=== PATIENT | male | born 1950 | race Caucasian/White ===

== ENCOUNTER 2019-04-02 11:00 | Inpatient (IN) | payer MEDICARE, BC ==
--- NOTE | 2019-03-27 22:26 | HP ---
AMENDED REPORT NOW INCLUDES DESIGNATED COSIGNER HISTORY AND PHYSICAL: DATE OF ADMISSION/SURGERY: 04/07/19 DATE OF OFFICE VISIT: 03/27/19 ATTENDING SURGEON: Dr. Leah Dennis.* (DICTATED BY GARY BULL) PROCEDURE: Left total knee arthroplasty. CHIEF COMPLAINT: Left knee pain. HISTORY OF PRESENT ILLNESS: Mr. Menjivar is a 68-year-old male who reports 18 months of increasing severe left knee pain. The patient reports 4-6/10 pain in the left knee along the medial joint line. He had some patellofemoral crepitus with stair climbing. He can no longer walk more than 1 block without severe pain. The patient does have significant history of psoriatic arthritis, fibromyalgia, and lymphedema. In the past, he has tried anti-inflammatories, but did have some stomach issues and can no longer take these. He has tried a brace wear, physical therapy, and injections, which did not help with pain. The patient feels like the pain is becoming more severe and impacting his daily life. At this point, he would like to proceed with the total knee arthroplasty. PAST MEDICAL HISTORY: Fibromyalgia, lymphedema, GERD, hypertension, hypercholesterolemia, seasonal allergies, psoriatic arthritis, degenerative joint disease, allergic rhinitis, chronic pain syndrome, asthma, sleep apnea, morbid obesity, mitral valve disorder. PAST SURGICAL HISTORY: Cholecystectomy in 1985, Kurt fundoplication in 2005, cataract excision bilaterally in 2012, left wrist I and D in 1975, and right knee partial meniscectomy in 2015. MEDICATIONS: 1. Amlodipine besylate 5 mg p.o. twice a day. 2. Valsartan 160 mg p.o. daily. 3. Eplerenone 25 mg 1 p.o. daily. 4. QVAR 80 mcg inhaled twice a day. 5. Spiriva inhaled once a day. 6. Singulair/montelukast sodium 10 mg once daily. 7. Pulmicort 90 mcg 2 times a day as needed. 8. Xopenex/levalbuterol tartrate 45 mcg inhaled twice a day as needed. 9. Olopatadine 1 drop each eye 3 times a day as needed. 10. Azelastine as needed. 11. EpiPen as needed. 12. Lovaza 1 g 3 times a day. 13. Calcipotriene cream 0.005% twice times a day on elbows as needed. 14. Medical marijuana 5 to 9 mg THC-1 to 10 mcg CBD one 2 times a day. 15. Lumigan 0.01% one drop each eye per day. 16. Azopt 1% one drop each eye 3 times a day. 17. Alfuzosin 10 mg once per day in the evening. 18. Zyrtec 10 mg p.o. once daily. 19. Vitamin D3 1000 units 3 times a day. 20. Potassium 99 mg 1 time per day. 21. Magnesium 250 mg p.o. b.i.d. 22. Vitamin B12 1 mg sublingual 1 times per day. 23. CBD oil 50 mg 1 time per day. ALLERGIES: LOPRESSOR, HYDROCHLOROTHIAZIDE, ERYTHROMYCIN, CLINDAMYCIN, CODEINE, NABUMETONE, IBUPROFEN, CELEBREX, PREVACID, PLAQUENIL, AMITRIPTYLINE, COREG, and HUMIRA. FAMILY HISTORY: Positive for coronary artery disease and alcoholism. SOCIAL HISTORY: The patient is a retired petroleum laboratory technician. He lives at home with his . He denies any tobacco, recreational drug, or alcohol use. He was a former smoker and alcoholic, but he quit many years ago. He is normally active with walking. He is right handed. REVIEW OF SYSTEMS: General: Negative for fevers, chills, night sweats, unexplained weight loss or gain. No known anesthesia problems. HEENT: Negative for headache, lightheadedness, syncopal episodes, visual changes. Integumentary: Negative for abrasions, lesions, open wounds. Cardiothoracic: Negative for hypertension, chest pain, edema. Positive for palpitations. Respiratory: Negative for shortness of breath with exertion, chronic cough, wheezing. GI: Negative for nausea, vomiting, diarrhea, constipation, or GERD. : Negative for nocturia, urinary frequency, urgency, history of UTIs, kidney problems. Positive for enlarged testes. Musculoskeletal: Positive for left knee pain. Negative for chronic or intermittent back pain or history of fractures. Neurologic: Positive for neuropathy and negative for paresthesia, numbness, history of seizure, stroke, poor balance. Negative for anxiety or depression. Endocrine: Negative for depression and thyroid disease. Hematologic: Negative for easy bruising, anemia, bleeding disorders, history of DVT. ID: Negative for history of MRSA infection, hep C, or HIV. PHYSICAL EXAMINATION GENERAL: Well-developed, well-nourished 68-year-old male, in no acute distress. VITAL SIGNS: Height 70 inches, weight 254 pounds. Pulse 108, BP 144/68, respirations 18, temperature 98.8, pain level 2, BMI 36.4. HEENT: Normocephalic, atraumatic. PERRLA. Extraocular movements intact. Throat is clear. NECK: Supple. No palpable lymph nodes. PULMONARY: Lungs are clear to auscultation bilaterally. No wheezes, rales, or rhonchi. CARDIO: Regular rate and rhythm. S1 and S2 normal. No murmurs, rubs, or gallops. No edema. ABDOMEN: Positive bowel sounds, soft and nontender. NEUROLOGIC: A and O x3. Cranial nerves II through XII intact. Sensation is intact to light touch. MUSCULOSKELETAL: Left lower extremity: The patient's skin is intact. No abrasions or open wounds. No palpable lymph nodes. Moderate effusion at the knee joint with tenderness along the medial joint line. Varus alignment of the knee. A 10 to 120 degrees of flexion with patellofemoral crepitus tenderness along the medial joint line with no varus or valgus instability distally. No edema, varicosities, or hyperreflexia. A 5/5 ankle dorsiflexion and plantarflexion strength. Full sensation to light touch in all nerve distributions and 2+ palpable DP pulse. DIAGNOSTIC STUDIES: Multiple plain films of the left knee showed advanced arthritis of the knee joint worse on the medial compartment. There is medial bone- to-bone contact with subchondral sclerosis and cyst formation at the point of contact along the distal medial femoral condyle and medial tibial plateau with osteophyte formation. There is also an MRI showing the advanced arthritis on the medial compartment as well as advanced arthritis on the patellofemoral compartment with cartilage thinning and osteophyte formation. IMPRESSION: Left knee severe osteoarthritis. PLAN: The patient is scheduled to undergo a left total knee arthroplasty with Dr. Dennis on 04/07/19. Dr. Dennis discussed the procedure as well as the risks and benefits with the patient and he elects to proceed. He will return to the office in 10 to 14 days postop for followup and suture removal. Upon discharge from the hospital, he will have a prescription for Percocet for postoperative pain management. STEPHANIA MENDENHALL, GARY [id number]/[facility] #: [id number] [facility] PSYCHIATRIC CENTERLibby
[2019-04-06] MEDS ORDERED: Buffered Lidocaine 1% SYRIN* 1 ML/SYRINGE INTRADERM ONE (14:07)
[2019-04-07] MEDS ORDERED: Tranexamic Acid 1,000 MG in NS 0.9% 50 ML* (outpatient use) IV SCH ×2
[2019-04-07] MEDS ORDERED: Dexamethasone IV* 4 MG/ML 1 ML (4 MG) IV SLOW PU ONE (06:00)
[2019-04-07] MEDS ORDERED: Lactated Ringers 1000 ML Bag* 1,000 ML IV SCH (06:00)
[2019-04-07] MEDS ORDERED: cefTRIAXone(*) 2 GM ADDV.VIAL IVPB ONE (06:42)
[2019-04-07] MEDS ORDERED: Buffered Lidocaine 1% SYRIN* 1 ML/SYRINGE INTRADERM ONE (06:42)
[2019-04-07] MEDS ORDERED: Dexamethasone IV* 4 MG/ML 1 ML (4 MG) ONE (06:42)
[2019-04-07] MEDS ORDERED: Gabapentin CAP(*) 300 MG ONE (07:22)
[2019-04-07] MEDS ORDERED: Lidocaine 1% MPF ** 5 ML VIAL ONE (07:22)
[2019-04-07] MEDS ORDERED: ROPIVACAINE 5 MG/ML 30 ML BTL (0.5%) ONE ×2 (07:22→07:55)
[2019-04-07] MEDS ORDERED: Gabapentin CAP(*) 300 MG PO ONE (07:24)
[2019-04-07] MEDS ORDERED: fentaNYL* 50 MCG/ML 2 ML VIAL (100 MCG VIAL) ONE (07:31)
[2019-04-07] MEDS ORDERED: Midazolam* 1 MG/ML 2 ML VIAL (2 MG) ONE (07:32)
[2019-04-07] MEDS ORDERED: Phenylephrine 10 MG/ML VIAL* 1 ML VIAL ONE (08:28)
[2019-04-07] MEDS ORDERED: Propofol* 10 MG/ML 20 ML BTL ONE ×2 (09:02→09:54)
[2019-04-07] MEDS ORDERED: HYDROmorphone INJ1* 1 MG/ML SYRINGE IV PRN (09:46)
[2019-04-07] MEDS ORDERED: Acetaminophen IV 1GM/100ML * 1,000 MG/100 ML VIAL IVPB ONE (09:46)
[2019-04-07] MEDS ORDERED: Ondansetron INJ* 2 MG/ML VIAL IV PRN ×2 (09:46→10:53)
[2019-04-07] MEDS ORDERED: Naloxone* 0.4 MG/ML 1 ML VIAL IV PRN (09:46)
[2019-04-07] MEDS ORDERED: Bupivacaine 0.5% SDV PF* 30ML VIAL ONE (09:54)
[2019-04-07] MEDS ORDERED: Magnesium Hydroxide LIQ* 30 ML UDC PO PRN (10:53)
[2019-04-07] MEDS ORDERED: Polyethylene Glycol 3350* 17 GM PACKET PO PRN (10:53)
[2019-04-07] MEDS ORDERED: traMADol TAB* 50 MG PO PRN (10:53)
[2019-04-07] MEDS ORDERED: diPHENhydraMINE PO* 25 MG PO PRN (10:53)
[2019-04-07] MEDS ORDERED: Bisacodyl SUPP* 10 MG SUPP PR PRN (10:53)
[2019-04-07] MEDS ORDERED: Cyclobenzaprine TAB* 10 MG PO PRN (10:53)
[2019-04-07] MEDS ORDERED: diPHENhydraMINE IV* 50 MG/ML 1 ml VIAL (BENADRYL) IV PRN (10:53)
[2019-04-07] MEDS ORDERED: Budesonide Flexhaler 90 (NF) 90 MCG/ACT MDI INH PRN (11:01)
[2019-04-07] MEDS ORDERED: Docosanol 10%* CREAM 2 GM TUBE TOPICAL PRN (11:01)
[2019-04-07] MEDS ORDERED: PTO: Levalbuterol HFA INHALER* 1 PUFF MDI INH PRN (11:01)
[2019-04-07] MEDS ORDERED: AZELASTINE 0.15% NASAL PRN (11:01)
[2019-04-07] MEDS ORDERED: Olopatadine 0.1% OPHTH (NF) 1 DROP BTL BOTH EYES PRN (11:01)
[2019-04-07] MEDS ORDERED: oxyCODONE/Acetamin 5/325 MG* TAB PO PRN (11:06)
[2019-04-07] MEDS: Lactated Ringers 1000 ML Bag* 1,000 ML IV SCH ×2 (12:14→22:07)
[2019-04-07] MEDS: oxyCODONE/Acetamin 5/325 MG* TAB PO PRN ×3 (13:07→21:16)
[2019-04-07] MEDS: Acetaminophen TAB* 325 MG PO SCH ×2 (15:04→21:57)
[2019-04-07] MEDS: oxyCODONE TAB* 5 MG TAB PO PRN ×3 (15:05→23:19)
--- NOTE | 2019-04-07 15:32 | PN ---
Progress Note - Progress Note Date of Service: 04/07/19 Note: Post-op check s/p left TKA: Patient walking with PT when I arrive. Pain is well managed. He denies SOB, or CP. Dressing is C/D/I with cryocuff in place. Positive dorsi/plantar flexion left ankle with intact sensation and 2+ DP pulse. Patient will continue with PT and we will monitor.
[2019-04-07] MEDS: ceFAZolin 1 GM ADVAN(*) 1 GM in NS 0.9% 50 ML* 50 ML IVPB SCH ×2 (15:48→23:30)
--- NOTE | 2019-04-07 16:33 | CONS ---
CC: Dr. Ami Pal; Dr. Leah Dennis * CONSULTATION REPORT: DATE OF CONSULTATION: 04/07/19 PRIMARY CARE PROVIDER: Dr. Ami Pal. ORTHOPEDIC SURGEON: Dr. Leah Dennis. ATTENDING PHYSICIAN: Dr. Domonique Gannon (dictated by GARY Ballesteros). REASON FOR CONSULTATION: Co-medical management. HISTORY OF PRESENT ILLNESS/HOSPITAL COURSE: I refer you to Dr. Dennis's history and physical dated 03/27/19 for full and complete details, but in short, Mr. Menjivar is a 69-year-old male with a past medical history of hypertension, lymphedema, venous insufficiency, chronic pain, fibromyalgia, morbid obesity, who presented to [facility] today for an elective left total knee arthroplasty after having failed conservative management. The patient is seen on the surgical floor in his room, postoperatively. He notes that he had pain in the left knee. Approximately 40 minutes ago, he was given oral pain medication, which resolved the pain. He denies pain at this point in time. He notes that he does have some residual tingling in bilateral lower extremities from nerve block , but no overt numbness. He is currently requiring O2 at 2 L. He does admit to some "phlegm" in the lungs, but no productive cough. He has lower extremity edema, which is chronic, and he notes that he has a slight amount more than usual due to inability to wear compression socks today and decreased ambulation. He denies chest pain, shortness of breath, headache, vision changes , cough, fever, chills, abdominal pain, nausea, vomiting, diarrhea or constipation. He denies weakness or pain, numbness or tingling in the extremities. PAST MEDICAL HISTORY: 1. Hypertension. 2. Obstructive sleep apnea. 3. Morbid obesity. 4. Asthma. 5. Lymphedema, chronic venous insufficiency. 6. Fibromyalgia. 7. Chronic pain. 8. Degenerative joint disease - C-spine, L-spine. 9. BPH. 10. GERD, status post Kurt fundoplication. 11. Mitral valve disorder. 12. Bilateral glaucoma. 13. Allergic rhinitis. 14. Seasonal allergies. 15. Psoriatic arthritis. PAST SURGICAL HISTORY: Cholecystectomy in 1985, right meniscus, Kurt fundoplication in 2005, right hand infection I and D in 1977, and tonsillectomy as a child. HOME MEDICATIONS: 1. Acetaminophen 1 to 2 tabs p.o. t.i.d. p.r.n. pain. 2. Acyclovir ointment apply p.r.n. 3. Alfuzosin 10 mg p.o. at bedtime. 4. Amlodipine besylate 5 mg p.o. b.i.d. 5. Azelastine 1 spray nasally daily p.r.n. allergies. 6. Azopt 1% ophthalmic solution 1 drop to both eyes b.i.d. 7. Beclomethasone 80 mcg MDI, 2 puffs inhalation b.i.d. 8. Lumigan ophthalmic 0.1 mg to both eyes at bedtime. 9. Budesonide Flexhaler 90, two puffs inhalation b.i.d. p.r.n. 10. Calcipotriene 1 application topically b.i.d. 11. CBD 15 mg liquid p.o. q.a.m. 12. Cetirizine 10 mg p.o. q.a.m. 13. EpiPen 0.3 mg injection once p.r.n. 14. Eplerenone 25 mg p.o. q.a.m. 15. Levalbuterol HFA inhaler 2 puffs inhalation q.4 hours p.r.n. shortness of breath. 16. Magnesium 250 mg p.o. b.i.d. 17. Medical marijuana 5 to 10 mg tab p.o. in the evening. 18. Montelukast 10 mg p.o. q.a.m. 19. Olopatadine 0.1% ophthalmic, 1 drop to both eyes b.i.d. p.r.n. allergy symptoms. 20. [place]-3 acid ethyl esters 1 g p.o. t.i.d. 21. Potassium gluconate 1 tab p.o. q.a.m. 22. Spiriva inhaler device, 2 puffs inhalation q.a.m. 23. Valsartan 160 mg p.o. q.a.m. 24. Vitamin B12 one tab sublingual q.a.m. 25. Vitamin D tab 1000 units p.o. t.i.d. DRUG ALLERGIES: BEE POLLEN - hives; HYDROCHLOROTHIAZIDE - leg cramp; HYDROXYCHLOROQUINE - GI upset; NABUMETONE - GI upset; NSAIDS - GI upset; PREGABALIN - lethargy; AMITRIPTYLINE - lethargy; CLINDAMYCIN - itching; METOPROLOL - dizziness; CODEINE - itching; ERYTHROMYCIN - nausea and vomiting; FAMOTIDINE - itching; LANSOPRAZOLE - itching; TRAMADOL - itching; CEPHALOSPORIN - itching; YEAST - bloating; MACROLIDES - itching. FAMILY HISTORY: Father at the age of 72 from [place], had history of CVA. Mother had hypertension, at the age of 97 from cancer. Son had testicular cancer. Brother had esophageal/lung cancer and . SOCIAL HISTORY: The patient no longer uses tobacco. He states that he smoked intermittently for approximately 8 years. He quit drinking approximately 45 years ago. He uses medical marijuana, which he is prescribed. He is a retired histologic technician. In his free time, he does wood carvings, gardening, [employer], and volunteers with [employer]. He is . He has 2 boys, who live outside of the house. In the event that he is unable to make his own medical decision, he has appointed his , Rosana Nicolas, to be his surrogate decision maker. REVIEW OF SYSTEMS: A 10-point review of systems has been performed and all the pertinent positives and negatives are in the HPI. All other systems are negative. PHYSICAL EXAM: Vital Signs: Temperature 97.4 oral, heart rate 85, respiratory rate 22, oxygen saturation 94% on 2 L O2, blood pressure 148/72. General: Mr. Menjivar is a well-developed, well-nourished, morbidly obese 69-year-old white male , who is sitting up in bed. He has his and a friend at his bedside. He is pleasant, cooperative, and friendly. HEENT: Normocephalic, atraumatic. PERRL. Nonicteric sclerae. EOMI. Hearing is grossly intact. Oral mucous membranes are moist, without lesions. Cardiovascular: Regular rate and rhythm with S1 and S2 present, without murmurs, rubs, clicks or gallops. There is no JVD. There is bilateral lower extremity 1+ pitting edema. Respiratory: Symmetrical chest expansion without use of accessory muscles. Lungs are clear to auscultation bilaterally, without rhonchi, wheezes or rubs. There is no clubbing or cyanosis distally. Abdomen: Obese. Bowel sounds noted in all quadrants. The abdomen is soft without tenderness to palpation. Musculoskeletal: The patient is able to move all of his extremities. The left knee has clean, dry, intact dressing in place; Cryo unit in place. Neuro: The patient is awake. He is alert and oriented x3 with cranial nerves grossly intact. He is able to move all of his extremities. He has intact sensation to bilateral lower extremities. Pulses are palpable. He is able to wiggle his toes. ASSESSMENT AND PLAN: Mr. Menjivar is a 69-year-old male with a past medical history of hypertension, lymphedema, venous insufficiency, chronic pain, asthma , morbid obesity, who presented to [facility] today for an elective left total knee arthroplasty. He has been admitted as inpatient for: 1. Left total knee arthroplasty: Management per orthopedic team. 2. Hypertension: Continue home medications, amlodipine, Inspra, and valsartan. Discussed holding valsartan, but the patient is disinterested in this. 3. Asthma: Continue home inhalers, beclomethasone, levalbuterol, Spiriva p.r.n. Continue Singulair. 4. Benign prostatic hypertrophy: Continue alfuzosin. 5. Seasonal allergies: Continue cetirizine. 6. Lymphedema, venous insufficiency: The patient continues to have lower extremity edema, which is chronic. He uses compression stockings at home. He will be continued on compression stockings as well as SCDs. 7. Obstructive sleep apnea: The patient has his home CPAP, which he will continue to use. 8. Code status: Full code. TIME SPENT: Approximately 30 minutes were spent on this consultation, greater than half that time was spent with the patient and his family and friends, obtaining history, performing physical, and reviewing the plan of care. The case has been reviewed with my attending, Dr. Gannon, who is in agreement with the plan of care. GARY ZAYAS [id number]/[facility] #: [id number] TANK
[2019-04-07] MEDS: Mometasone 220 MCG MDI INH SCH ×2 (18:42→18:47)
[2019-04-07] MEDS: MAGNESIUM 250 MG PO SCH (19:49)
--- NOTE | 2019-04-07 19:59 | OP ---
Operative Report - Blank - Operative Report Date of Operation: 04/07/19 Note: SHNAI GLOVER 1950 Date of Surgery: 04/07/19 Leah Dennis MD Butter Melter: Zac VEGA did help throughout the procedure with preparation of the knee, wound retraction, manipulation of the knee, and wound closure. Anesthesiologist: Dr. Chao Anesthesia Type: Spinal Preoperative Diagnosis: Left severe degenerative osteoarthritis of the knee Postoperative Diagnosis: As above Procedure Performed: Left Total Knee Arthroplasty Tourniquet time: 52 minutes Complications: None Specimen: Bone and cartilage from the left knee joint sent to pathology. Hardware Used: Cemented Dupree and Nephew total knee hardware was used - For the femur a size 7 Left legion posterior stabilized femoral component, for the tibia a size 6 left pari II tibial baseplate, for the insert a size 9mm 5-6 posterior stabilized articular polyethylene insert, and for the patella a size 35 3-peg all poly patella. Brief History/Indication: SHAIN GLOVER was known in clinic and had a history of severe left knee pain and swelling. He failed conservative treatment with anti- inflammatories, pain pills, intra-articular injections and physical therapy. He elected to undergo left total knee arthroplasty due to continued pain and decreased quality of life. Radiographs showed severe end stage osteoarthritis of the knee with bone on bone contact. Informed consent was obtained from the patient. He understood the risks of surgery included but were not limited to: bleeding, infection, damage to nearby structures, intraoperative fracture, nerve palsy, failure of the hardware, early loosening, knee stiffness or loss of motion, anesthesia complications, stroke, heart attack, blood clot and . He wished to proceed. Intra-Operative Findings: Intraoperatively the patient was noted to have severe loss of cartilage in all 3 compartments of the knee. Description of the Procedure: SHANI GLOVER was identified in the preanesthesia unit. His left knee was marked as the correct operative side. Informed consent was signed and placed in the chart. The patient was taken to the operating room and placed under anesthesia without complication. A winters catheter was placed. A tourniquet was placed on the left thigh. The left lower extremity was prepped and draped in the usual sterile fashion. Preoperative time-out was made to correctly identify the patient, side and site. Appropriate intraoperative antibiotics were given within one hour of incision. Tourniquet was inflated. A midline incision was made and carried sharply down to the extensor mechanism. A new 10 blade was used to make a standard medial parapatellar arthrotomy. The patella was subluxed laterally. Electrocautery was used to dissect soft tissue off the superomedial tibia to the midsagittal plane. The knee was flexed up. The anterior horn of the lateral meniscus and the ACL were sharply incised. A drill was used to enter the distal femur. The intramedullary distal femoral cutting guide was pinned on the distal femur. The oscillating saw was used to make the distal femoral cut. The external rotation guide was pinned on the distal femur and the distal femur was sized to a size 7. The size 7 multi-cutting jig was pinned on the distal femur. The oscillating saw was used to make the appropriate 4 chamfer cuts. Next the PCL was completely released. The extramedullary tibial cutting guide was pinned on the proximal tibia and the oscillating saw was used to make the proximal tibial cut perpendicular to the mechanical axis of the tibia. The bone was carefully removed. The knee was brought out into full extension. The spacer block was placed and had excellent fit with the knee in full extension. The medial and lateral ligaments were well balanced. The flexion and extension gaps were well balanced. The knee was flexed up. Lamina farmer general was placed both medially and laterally. Any remaining meniscus was removed with electrocautery. Curved osteotome was used to remove any posterior osteophytes. The tibial tray and drop karla were placed and confirmed a satisfactory tibial cut. The size 7 left femoral trial was impacted onto the distal femur. This trial had excellent fit and stability. The box for the posterior stabilized implant was prepared using a box cut osteotome and a reamer. Next a tibial tray trial and 9 mm insert trial was placed. The knee was taken through a range of motion and had full extension to 130 degrees of flexion. Patellofemoral tracking was satisfactory. The patella was inverted and sized to a size 35. Three peg holes were drilled through the size 35 drill guide. The trial patella was placed and the knee was taken through a range of motion. There was satisfactory patellofemoral tracking. All trials were removed. The tibia was subluxed anteriorly and sized to a size 6. The proximal tibial was prepared with a size 6 keel punch. All bony cut surfaces were irrigated with sterile saline and dried. Final implants were cemented into place starting with the tibia, followed by the femur, and last the patella. A 9 mm insert trial was placed and the knee was brought into full extension. Tourniquet was turned down and the knee was copiously irrigated with sterile saline. Electrocautery was used to obtain meticulous hemostasis. Once the cement had fully cured, the insert trial was removed. Any excess cement was removed from around the hardware and capsule. Final insert chosen was a 9 mm posterior stabilized Pari II articular insert size 5-6. Stability of the insert was checked and noted to be stable. The extensor mechanism was closed using number 1 vicryls. The rest of the incision was closed in a layered fashion using 0 and 2-0 vicryls. The skin was closed using 3-0 nylon suture. Sterile xeroform, 4x4s and webril were used to cover the incision. Tadeo wrap and cold pack were used to cover the dressings. The patients anesthesia was reversed without difficulty. He was taken to the PACU in stable condition. Intended weight-bearing will be as tolerated.
[2019-04-07] MEDS ORDERED: Alfuzosin ER (NF) 10 MG TAB.ER PO SCH (20:30)
[2019-04-07] MEDS ORDERED: amLODIPine TAB* 5 MG PO SCH (21:00)
[2019-04-07] MEDS ORDERED: Latanoprost 0.005%* 2.5 ml BTL BOTH EYES SCH (21:00)
[2019-04-07] MEDS: Apixaban* 2.5 MG TAB PO SCH (21:15)
[2019-04-07] MEDS: amLODIPine TAB* 5 MG PO SCH (21:15)
[2019-04-07] MEDS: Docusate CAP* 100 MG PO SCH (21:15)
[2019-04-07] MEDS: Magnesium Hydroxide LIQ* 30 ML UDC PO SCH (21:15)
[2019-04-07] MEDS ORDERED: PTO:Bimatoprost 0.01% OPHTH (NF) 2.5 ML BTL BOTH EYES SCH (22:00)
[2019-04-07] MEDS: ALFUZOSIN 10 MG PO SCH (22:08)
[2019-04-07] MEDS: PTO: Brinzolamide 1% OPHTH SOL(NF) BTL BOTH EYES SCH (22:09)
[2019-04-07] MEDS: CALCIPOTRIENE TOPICAL SCH (22:11)
[2019-04-07] MEDS: PTO: Beclomethasone 80 MCG MDI(NF) 80 MCG/PUFF MDI INH SCH (22:30)
[2019-04-07] MEDS: Morphine 4 MG/ML VIAL (1 ml) 4 MG/ML VIAL IV PRN (23:19)
[2019-04-08] MEDS: oxyCODONE/Acetamin 5/325 MG* TAB PO PRN ×4 (02:09→21:47)
[2019-04-08] MEDS: Morphine 4 MG/ML VIAL (1 ml) 4 MG/ML VIAL IV PRN ×2 (04:13→09:25)
[2019-04-08] MEDS: oxyCODONE TAB* 5 MG TAB PO PRN ×2 (04:13→11:07)
[2019-04-08 05:56] LABS: Hematocrit 37 % (42-52); Hemoglobin 12.8 g/dL (14.0-18.0); Mean Platelet Volume 7.7 fL (7.4-10.4); Platelet Count 189 10^3/uL (150-450)
[2019-04-08 06:06] LABS: BUN/Creatinine Ratio 16.7 (8-20); Calcium 8.9 mg/dL (8.6-10.3); EGFR African American 87.6 (>60); EGFR Non-African American 72.4 (>60); Potassium 4.1 mmol/L (3.5-5.0)
[2019-04-08] MEDS: Acetaminophen TAB* 325 MG PO SCH ×3 (06:27→22:47)
[2019-04-08] MEDS: Tiotropium CAP.INH* CAP.INH/18 MCG (USE ORDER SET !) INH SCH (08:03)
[2019-04-08] MEDS: PTO: Beclomethasone 80 MCG MDI(NF) 80 MCG/PUFF MDI INH SCH ×2 (08:09→19:20)
[2019-04-08] MEDS: Lactated Ringers 1000 ML Bag* 1,000 ML IV SCH (08:21)
[2019-04-08] MEDS: ceFAZolin 1 GM ADVAN(*) 1 GM in NS 0.9% 50 ML* 50 ML IVPB SCH (08:21)
[2019-04-08] MEDS: Apixaban* 2.5 MG TAB PO SCH ×2 (08:27→21:52)
[2019-04-08] MEDS: Montelukast Sodium TAB* 10 MG PO SCH (08:28)
[2019-04-08] MEDS: Cetirizine* 10 MG TAB PO SCH (08:28)
[2019-04-08] MEDS: Docusate CAP* 100 MG PO SCH ×2 (08:28→21:49)
[2019-04-08] MEDS: Cyanocobalamin TAB* 500 MCG PO SCH (08:28)
[2019-04-08] MEDS: PTO: Brinzolamide 1% OPHTH SOL(NF) BTL BOTH EYES SCH ×2 (08:29→21:53)
[2019-04-08] MEDS: Magnesium Hydroxide LIQ* 30 ML UDC PO SCH ×2 (08:29→21:49)
[2019-04-08] MEDS: Valsartan TAB* 160 MG PO SCH (08:29)
[2019-04-08] MEDS: amLODIPine TAB* 5 MG PO SCH ×2 (08:29→21:47)
[2019-04-08] MEDS: CALCIPOTRIENE TOPICAL SCH ×2 (08:30→22:18)
[2019-04-08] MEDS: EPLERONONE 25 MG PO SCH ×2 (08:31→11:39)
[2019-04-08] MEDS: MAGNESIUM 250 MG PO SCH ×3 (08:31→21:49)
[2019-04-08] MEDS: POTASSIUM 99 MG PO SCH (08:32)
[2019-04-08] MEDS ORDERED: Spiriva Inhaler DEVICE* 1 EACH DEVICE INH ONE (09:00)
--- NOTE | 2019-04-08 11:21 | PN ---
Subjective Date of Service: 04/08/19 Interval History: Patient has pain in L knee that he rates at 5-6/10; stats he is ready for pain medications now. He walked with PT this morning and states he did "okay," but it was painful. He admits to nausea with eating this morning, otherwise no abdominal complains. Urinary cath was removed this morning and he has yet to urinate. Pt is agitated and appears anxious about medication timing, both home medications and pain medications. He denies any other complaints at this time. Objective Active Medications: Acetaminophen (Tylenol Tab*) 975 mg PO Q8HR [facility] Alfuzosin HCl (Uroxatral (Nf)) 10 mg PO 2100 [place] Amlodipine Besylate (Norvasc Tab*) 5 mg PO BID [place] Apixaban (Eliquis*) 2.5 mg PO BID [place] Beclomethasone Dipropionate (Qvar 80 Mcg Mdi(Nf)) 2 puff INH BID [place] Bimatoprost (Lumigan 0.01% Ophth (Nf)) 1 drop BOTH EYES BEDTIME [facility]; Protocol Bisacodyl (Dulcolax Supp*) 10 mg [place] DAILY PRN Brinzolamide (Azopt 1% Ophth Angelic(Nf)) 1 drop BOTH EYES BID [place] Cetirizine HCl (Zyrtec*) 10 mg PO QAM [place] Cyanocobalamin (Vitamin B12 Tab*) 500 mcg PO QAM [place] Cyclobenzaprine HCl (Flexeril Tab*) 10 mg PO TID PRN Diphenhydramine HCl (Benadryl Iv*) 25 mg IV Q6H PRN Diphenhydramine HCl (Benadryl Po*) 25 mg PO Q6H PRN Docosanol (Abreva 10%*) 1 applic TOPICAL QID PRN Docusate Sodium (Colace Cap*) 100 mg PO BID [place] Eplerenone (Inspra (Nf)) 25 mg PO QAM [place]; Protocol Lactulose (Lactulose*) 30 ml PO Q6H PRN Levalbuterol HCl (Xopenex Hfa Inhaler*) 2 puff INH Q4HR PRN Magnesium Hydroxide (Milk Of Magnesia Liq*) 30 ml PO BID [place] Magnesium Hydroxide (Milk Of Magnesia Liq*) 30 ml PO Q6H PRN Montelukast Sodium (Singulair Tab*) 10 mg PO QAM [place] Morphine Sulfate (Morphine 4 Mg/Ml Vial (1 Ml)) 4 mg IV Q2H PRN Non-Formulary Medication (Azelastine 0.15% Nasal(Nf)) 1 spray NASAL DAILY PRN Pto: Calcipotriene [ Calcipotriene] 1 Applic) 1 applic TOPICAL BID [place] Pto: (Magnesium 250 (Mg)) 250 mg PO BID [facility] Pto: Potassium 99mg (Tab) 1 tab PO QAM [facility] Olopatadine HCl (Patanol 0.1% Ophth (Nf)) 1 drop BOTH EYES BID PRN; Protocol Ondansetron HCl (Zofran Inj*) 4 mg IV Q6H PRN Oxycodone HCl (Roxycodone Tab*) 10 mg PO Q4H PRN Oxycodone/Acetaminophen (Percocet 5/325 Tab*) 2 tab PO Q3H PRN Oxycodone/Acetaminophen (Percocet 5/325 Tab*) 1 tab PO Q3H PRN Polyethylene Glycol/Electrolytes (Miralax*) 17 gm PO DAILY PRN Tiotropium [place] (Spiriva Cap.Inh*) 1 cap INH 0900 [place] Valsartan (Diovan Tab*) 160 mg PO QAM PENDING SALE TO [facility] Vital Signs: Temp Pulse Resp BP Pulse Ox 98.1 F 94 18 144/82 95 04/08/19 07:52 04/08/19 08:00 04/08/19 11:10 04/08/19 07:52 04/08/19 10:00 Oxygen Devices in Use Now: Nasal Cannula Appearance: Pt is sitting in chair with LLE elevated. He appears slightly agitated and anxious during our converstation this morning. He admits to pain, appears mildly uncomfortable, and is in no acute distress. Eyes: No Scleral Icterus, PERRLA Ears/Nose/Mouth/Throat: NL Teeth, Lips, Gums, Clear Oropharnyx, Mucous Membranes Moist Neck: NL Appearance and Movements; NL JVP, Trachea Midline Respiratory: Symmetrical Chest Expansion and Respiratory Effort, Clear to Auscultation Cardiovascular: NL Sounds; No Murmurs; No JVD, RRR Abdominal: NL Sounds; No Tenderness; No Distention, No Hepatosplenomegaly Extremities: No Clubbing, Cyanosis Neurological: Alert and Oriented x 3, NL Sensation, - - L knee with CDI and cryounit in place. Sensation, pedal pulses intact. Trace b/l LE edema. Result Diagrams: 04/08/19 05:21 04/08/19 05:21 Assess/Plan/Problems-Billing Assessment: 69yom PMHx HTN, HLD, obesity, chronic lymphedema, venous insufficiency, asthma, chronic pain presents post-op LTKA. - Patient Problems (1) Status post total left knee replacement Comment: -POD1 -Continue management per ortho team (2) Hyponatremia Comment: -Na 131, h/o mild hyponatremia -Asymptomatic -Discontinue IVF and repeat BMP in a.m. (3) Lymphedema Comment: -Trace edema -Continue SCDs until ambulation, then TEDs for edema (4) Hypertension Comment: -SBP 124-146 -Continue home Inspra, valsartan, amlodipine (5) Asthma Comment: -Continue home inhalers Qvar, Spiriva, Xopenex -Continue singulair (6) BPH (benign prostatic hyperplasia) Comment: -Continue alfuzosin (7) Seasonal allergies Comment: -Continue cetirizine (8) TYLOR (obstructive sleep apnea) Comment: -Continue home CPAP (9) DVT prophylaxis Comment: -Per ortho: Therese (10) Full code status Status and Disposition: Inpatient. Discharge per ortho.
[2019-04-08] MEDS ORDERED: Morphine INJ* 2 MG/ML 1 ML SYRINGE (TWO MG - NEW SYRINGE VERSION) IV PRN (11:28)
--- NOTE | 2019-04-08 11:30 | PN ---
Progress Note - Progress Note Date of Service: 04/08/19 SOAP: Subjective: []Patient seen and examined at bedside. Knee pain is controlled with use of oxycodone, percocet and IV morphine. Denies chest pain, shortness of breath, dizziness or nausea. Objective: []Gen: Appears well, NAD, carries on appropriate conversation LLE: Dressing CDI, thigh soft, DF/PF intact, DP2+, Sensation intact to light touch distally Calves supple and nontender without erythema, edema or palpable cords Assessment: []POD 1 SP LTK Plan: []WBAT PT/OT hyponatremia: stop fluids, repeat tomorrow Pain : Stop 4 mg IV morphine, changed to MS contin 15 mg po Q12 hr and decreased IV morphine to 1mg every 4 hours if needed for breakthrough. Goal to transition to long acting PO morphine with either percocet or oxycodone for breakthrough rather than both alternating. Hold narcotics for sedation Vital Signs Temp 97.8 F 04/08/19 11:30 Pulse 94 04/08/19 11:30 Resp 18 04/08/19 11:30 BP 146/51 04/08/19 11:30 Pulse Ox 95 04/08/19 11:30 Intake & Output 04/07/19 04/08/19 04/08/19 18:59 06:59 18:59 Intake Total 1100 1470 925 Output Total 3300 1700 Balance -2200 -230 925 Weight 252 lb Intake: IV Fluids 700 875 LR 700 875 IVPB 50 ABX - CEFAZOLIN 50 Oral 400 1470 Output: Read 3300 1700 Other: Estimated Void Large # Voids 1 Laboratory Last Values Hgb 12.8 g/dL (14.0-18.0) L 04/08/19 05:21 Hct 37 % (42-52) L 04/08/19 05:21 Plt Count 189 10^3/uL (150-450) 04/08/19 05:21 MPV 7.7 fL (7.4-10.4) 04/08/19 05:21 Sodium 131 mmol/L (135-145) L 04/08/19 05:21 Potassium 4.1 mmol/L (3.5-5.0) 04/08/19 05:21 Chloride 98 mmol/L (101-111) L 04/08/19 05:21 Carbon Dioxide 25 mmol/L (22-32) 04/08/19 05:21 Anion Gap 8 mmol/L (2-11) 04/08/19 05:21 BUN 17 mg/dL (6-24) 04/08/19 05:21 Creatinine 1.02 mg/dL (0.67-1.17) 04/08/19 05:21 Est GFR ( Amer) 87.6 (>60) 04/08/19 05:21 Est GFR (Non-Af Amer) 72.4 (>60) 04/08/19 05:21 BUN/Creatinine Ratio 16.7 (8-20) 04/08/19 05:21 Glucose 188 mg/dL (70-100) H 04/08/19 05:21 POC Glucose (mg/dL) 145 mg/dL (70-100) H 04/07/19 06:59 Calcium 8.9 mg/dL (8.6-10.3) 04/08/19 05:21
[2019-04-08] MEDS: Morphine TAB Extended Release (*) 15 MG TAB.ER PO SCH (13:04)
[2019-04-08] MEDS ORDERED: Calcium Carbonate CHEW TAB* 500 MG (TUMS) PO PRN (14:15)
[2019-04-08] MEDS: ALFUZOSIN 10 MG PO SCH (21:48)
[2019-04-09] MEDS: oxyCODONE/Acetamin 5/325 MG* TAB PO PRN ×3 (01:17→12:09)
[2019-04-09] MEDS: Morphine TAB Extended Release (*) 15 MG TAB.ER PO SCH (01:18)
[2019-04-09 05:42] LABS: Hematocrit 35 % (42-52); Hemoglobin 12.4 g/dL (14.0-18.0); Mean Platelet Volume 7.6 fL (7.4-10.4); Platelet Count 180 10^3/uL (150-450)
[2019-04-09 05:53] LABS: BUN/Creatinine Ratio 17.2 (8-20); Calcium 8.9 mg/dL (8.6-10.3); EGFR African American 90.7 (>60)
[2019-04-09] MEDS: Acetaminophen TAB* 325 MG PO SCH (06:06)
[2019-04-09] MEDS: PTO: Beclomethasone 80 MCG MDI(NF) 80 MCG/PUFF MDI INH SCH (08:18)
[2019-04-09] MEDS: Tiotropium CAP.INH* CAP.INH/18 MCG (USE ORDER SET !) INH SCH (08:19)
[2019-04-09] MEDS: Magnesium Hydroxide LIQ* 30 ML UDC PO SCH (08:57)
[2019-04-09] MEDS: oxyCODONE TAB* 5 MG TAB PO PRN (08:57)
[2019-04-09] MEDS: Apixaban* 2.5 MG TAB PO SCH (08:58)
[2019-04-09] MEDS: Valsartan TAB* 160 MG PO SCH (08:59)
[2019-04-09] MEDS: Cyanocobalamin TAB* 500 MCG PO SCH (08:59)
[2019-04-09] MEDS: EPLERONONE 25 MG PO SCH (08:59)
[2019-04-09] MEDS: Docusate CAP* 100 MG PO SCH (08:59)
[2019-04-09] MEDS: Montelukast Sodium TAB* 10 MG PO SCH (09:00)
[2019-04-09] MEDS: CALCIPOTRIENE TOPICAL SCH (09:00)
[2019-04-09] MEDS: amLODIPine TAB* 5 MG PO SCH (09:00)
[2019-04-09] MEDS: PTO: Brinzolamide 1% OPHTH SOL(NF) BTL BOTH EYES SCH (09:01)
[2019-04-09] MEDS: Cetirizine* 10 MG TAB PO SCH (09:02)
[2019-04-09] MEDS: MAGNESIUM 250 MG PO SCH (10:00)
[2019-04-09] MEDS: POTASSIUM 99 MG PO SCH (10:01)
--- NOTE | 2019-04-09 11:25 | PN ---
Progress Note - Progress Note Date of Service: 04/09/19 SOAP: Subjective: []Pt seen at bedside. He feels well and desires DC home. Denies any chest pain, shortness of breath, dizziness or nausea. Breathing comfortably on room air. Would like to DC home today Objective: []Gen: Appears well, NAD, carries on appropriate conversation LLE: Dressing changed by Dr Dennis this morning, remains CDI, thigh soft, DF/PF intact, DP2+, Sensation intact to light touch distally Calves supple and nontender without erythema, edema or palpable cords Assessment: []POD 2 SP LTK Plan: []WBAT PT/OT hyponatremia: home nursing to recheck within 3 days, resume normal diet Vital Signs Temp 98.3 F 04/09/19 07:49 Pulse 98 04/09/19 08:19 Resp 20 04/09/19 10:59 BP 148/65 04/09/19 07:49 Pulse Ox 98 04/09/19 08:19 Intake & Output 04/08/19 04/09/19 04/09/19 18:59 06:59 18:59 Intake Total 1974 2400 Output Total 2200 Balance 1974 200 Intake: IV Fluids 1310 LR 1310 IVPB 105 ABX - CEFAZOLIN 105 Oral 560 2400 Output: Urine 2200 Other: Estimated Void Medium # Bowel Movements 0 # Voids 1 Laboratory Last Values Hgb 12.4 g/dL (14.0-18.0) L 04/09/19 05:22 Hct 35 % (42-52) L 04/09/19 05:22 Plt Count 180 10^3/uL (150-450) 04/09/19 05:22 MPV 7.6 fL (7.4-10.4) 04/09/19 05:22 Sodium 130 mmol/L (135-145) L 04/09/19 05:22 Potassium 4.0 mmol/L (3.5-5.0) 04/09/19 05:22 Chloride 97 mmol/L (101-111) L 04/09/19 05:22 Carbon Dioxide 29 mmol/L (22-32) 04/09/19 05:22 Anion Gap 4 mmol/L (2-11) 04/09/19 05:22 BUN 17 mg/dL (6-24) 04/09/19 05:22 Creatinine 0.99 mg/dL (0.67-1.17) 04/09/19 05:22 Est GFR ( Amer) 90.7 (>60) 04/09/19 05:22 Est GFR (Non-Af Amer) 75.0 (>60) 04/09/19 05:22 BUN/Creatinine Ratio 17.2 (8-20) 04/09/19 05:22 Glucose 176 mg/dL (70-100) H 04/09/19 05:22 POC Glucose (mg/dL) 145 mg/dL (70-100) H 04/07/19 06:59 Calcium 8.9 mg/dL (8.6-10.3) 04/09/19 05:22
--- NOTE | 2019-04-09 11:39 | DS ---
Orthopedic Discharge Summary - Discharge Summary Date of Admission:04/07/19 Date of Discharge: 04/09/19 Date of Surgery: 04/07/19 Attending Orthopedic Provider: Dr Dennis Pre-operative Diagnosis: left knee osteoarthritis Operative Procedure: left total knee replacement Disposition of Patient: home with VNS Condition of Patient: stable History: SHANI GLOVER is a 69 year old M with years of increasingly severe left knee pain. Patient has failed conservative management and has elected to undergo a left total knee replacement Hospital Course: SHANI was admitted to [facility] on 04/07/19. Patient underwent a left total knee replacement without complication followed by a brief recovery in PACU and transfer to the Short Stay Surgical Unit in stable condition. Our hospitalist service, physical therapy also participated in this patients care. Post-op day 1: patient was alert and in no acute distress. Dressing was clean, dry and intact. Operative extremity dorsiflexion and plantarflexion intact, sensation intact to light touch distally, DP2+. Post- op day two: dressing was changed, incision was clean, dry and intact. Patient was deemed to be medically and orthopedically stable for discharge. Physical therapy goals were met. Home Medications Medication Instructions Recorded Confirmed Type Cetirizine HCl Zyrtec 10 mg PO QAM 07/11/12 04/07/19 History Magnesium 250 mg PO BID 07/11/12 04/07/19 History Potassium Gluconate 1 tab PO QAM 07/11/12 04/07/19 History Acyclovir OINT 5%(NF) [Zovirax 1 applic .SEE ORDER QID PRN 01/15/13 04/07/19 History Oint 5%(NF)] Epipen* 0.3 mg INJ ONCE PRN 01/15/13 03/27/19 History Levalbuterol HFA INHALER* [Xopenex 2 puff INH Q4HR PRN 01/15/13 03/27/19 History Hfa Inhaler*] Vitamin D TAB* 1,000 i.u. PO TID 03/30/13 04/07/19 History Eplerenone [Inspra] 25 mg PO QAM 04/26/16 04/07/19 History Amlodipine Besylate [Amlodipine 5 mg PO BID 07/26/16 04/07/19 History 2.5 mg tab] Bimatoprost 0.01% OPHTH (NF) 0.1 mg BOTH EYES BEDTIME 07/26/16 04/07/19 History [Lumigan 0.01% OPHTH (NF)] Spiriva Inhaler DEVICE* 2 puff INH QAM 07/26/16 04/07/19 History [Tiotropium Inhaler DEVICE*] Calcipotriene 1 applic TOPICAL BID 08/31/16 04/07/19 History Azelastine 0.15% NASAL(NF) 1 spray NASAL DAILY PRN 06/05/17 03/27/19 History Acetaminophen [Acetaminophen Extra 1 - 2 tab PO TID PRN 04/16/18 04/07/19 History Strength] Alfuzosin HCl [Alfuzosin HCl ER] 10 mg PO 2030 04/16/18 04/07/19 History Azopt 1% OPHTH MARY(NF) 1 drop BOTH EYES BID 04/16/18 04/07/19 History Beclomethasone 80 MCG MDI(NF) 2 puff INH BID 04/16/18 04/07/19 History [Qvar 80 MCG MDI(NF)] Medical Marijuana 1 unit PO .DAILY, SEE COMMENTS PRN 04/16/18 04/07/19 History Montelukast Sodium TAB* [Singulair 10 mg PO QAM 04/16/18 04/07/19 History 10 MG TAB*] Olopatadine 0.1% OPHTH (NF) 1 drop BOTH EYES BID PRN 04/16/18 04/07/19 History [Patanol 0.1% OPHTH (NF)] [place]-3 Acid Ethyl Esters [Lovaza] 1 gm PO TID 04/16/18 04/07/19 History Vitamin B12 1 tab SL QAM 04/16/18 04/07/19 History Budesonide Flexhaler 90 (NF) 2 puff INH BID PRN 03/27/19 04/07/19 History [Pulmicort Flexhaler 90 mcg/act (NF)] Cbd 50 Mg Liquid 50 mg PO QAM 03/27/19 04/07/19 History Valsartan TAB* [Diovan TAB*] 160 mg PO QAM 03/27/19 04/07/19 History Acetaminophen TAB* [Tylenol TAB*] 975 mg PO Q8HR tab 04/09/19 Rx Apixaban* [Eliquis*] 2.5 mg PO BID #60 tab 04/09/19 Rx Docusate CAP* [Colace Cap*] 100 mg PO BID PRN #90 cap 04/09/19 Rx Morphine TAB Extended Rel(*) [Ms 15 mg PO Q12H PRN #6 tab.er MDD 2 04/09/19 Rx Contin(*)] oxyCODONE/Acetamin 5/325 MG* 1 tab PO Q4H PRN tab MDD 10 04/09/19 Rx [Percocet 5/325 TAB*] oxyCODONE/Acetamin 5/325 MG* 2 tab PO Q4H PRN #70 tab MDD 10 04/09/19 Rx [Percocet 5/325 TAB*] Discharge Instructions following Orthopedic Surgery: Activity: * Weight Bearing as tolerated * Continue physical therapy and occupational therapy exercises as shown * Home PT Wound care: * OK to shower on post-op day 3, no bathing, swimming, or submerging wound. * Use gentle soap, pat dry. Cover with gauze, DONN wrap or tape. * Visiting home nurse to do wound checks. Please have home nursing recheck your sodium within 3 days of discharge ( by ) as it was low while in the hospital. Call Orthopedic office for: * Increased drainage * Redness * Increased pain * Fever Go to ER with shortness of breath or chest pain. Diet: * Regular diet * Increase fluids and fiber to prevent constipation. * Continue to use stool softeners, call office if no bowel motion within 48 hours. Medications See Home Medication List in your packet for medications that you should take after discharge. DVT Prophylaxis: Eliquis Dosin.5 mg, 1 tab every 12 hours x 30 days. This medication increases bleeding tendency Pain Control: Percocet Dosin/325 mg 1-2 tabs by mouth every 4-6 hours as needed for pain. Maximum of 10 tabs per day. Hold for sedation, wean off as soon as pain allows Please note that Percocet contains Tylenol (acetaminophen). Maximum daily dose of Tylenol is 4000 mg from all sources. Morphine Extended Release oral tab 15 mg take 1 tab every 12 hours as needed for severe pain. Wean off as soon as pain allows. Hold for sedation. Do not take at the same time as your medical marijuana please wean off of this medication before restarting. Antibiotics are required prior to any dental work. FOLLOW UP: Follow up with [Sonny] Within 10-14 days, call for appointment Please call our office with any questions or concerns ([phone])
[2019-04-09 11:57] VITALS: BP 149/59
== END 2019-04-09 13:38 | disposition home health service (06) | DRG 470 ==
LOC: AA 04-07 06:39 → SSU 04-07 10:53
PROVIDERS: ADMIT Orthopaedic Surgery Adult Reconstructive Orthopaedic Surgery; ATTEND Orthopaedic Surgery Adult Reconstructive Orthopaedic Surgery
PROC: 0SRD0J9 Replacement of Left Knee Joint with Synthetic Substitute, Cemented, Open Approach (ICD-10-PCS; principal; 2019-04-07 08:00)
DX: M17.12 Unilateral primary osteoarthritis, left knee (principal); E87.1 Hypo-osmolality and hyponatremia; M79.7 Fibromyalgia; I89.0 Lymphedema, not elsewhere classified; K21.9 Gastro-esophageal reflux disease without esophagitis; I10 Essential (primary) hypertension; E78.00 Pure hypercholesterolemia, unspecified; J30.2 Other seasonal allergic rhinitis; L40.50 Arthropathic psoriasis, unspecified; G89.4 Chronic pain syndrome; J45.909 Unspecified asthma, uncomplicated; M25.462 Effusion, left knee; E78.5 Hyperlipidemia, unspecified; I34.0 Nonrheumatic mitral (valve) insufficiency; G47.33 Obstructive sleep apnea (adult) (pediatric); J43.9 Emphysema, unspecified; E11.39 Type 2 diabetes mellitus with other diabetic ophthalmic complication; H42 Glaucoma in diseases classified elsewhere; R11.0 Nausea; N40.0 Benign prostatic hyperplasia without lower urinary tract symptoms; M51.36 Other intervertebral disc degeneration, lumbar region; M50.90 Cervical disc disorder, unspecified, unspecified cervical region; F41.9 Anxiety disorder, unspecified; M25.762 Osteophyte, left knee; E66.01 Morbid (severe) obesity due to excess calories; Z68.37 Body mass index [BMI] 37.0-37.9, adult; Z90.49 Acquired absence of other specified parts of digestive tract; Z79.51 Long term (current) use of inhaled steroids; Z79.52 Long term (current) use of systemic steroids; Z98.42 Cataract extraction status, left eye; Z98.41 Cataract extraction status, right eye; Z88.8 Allergy status to other drugs, medicaments and biological substances; Z88.1 Allergy status to other antibiotic agents; Z88.5 Allergy status to narcotic agent; Z88.6 Allergy status to analgesic agent; Z82.49 Family history of ischemic heart disease and other diseases of the circulatory system; Z81.1 Family history of alcohol abuse and dependence; Z87.891 Personal history of nicotine dependence; Z80.0 Family history of malignant neoplasm of digestive organs; Z80.1 Family history of malignant neoplasm of trachea, bronchus and lung; Z80.49 Family history of malignant neoplasm of other genital organs; Z82.61 Family history of arthritis; Z82.5 Family history of asthma and other chronic lower respiratory diseases
CPT/HCPCS: 36415; 80048; 85014; 85018; 85049; 88305; 88311; 94640; A9270-GY; C1776; G8978-GP-CJ; G8979-GP-CI; J0690; J0696; J1100; J2250; J2270; J2704; J2795; J3010; J3490

== ENCOUNTER 2021-06-08 08:46 | Observation (INO) ==
[~2021-06-08 08:46] MED LIST: Buffered Lidocaine 1% SYRIN 1 ml INTRADERM ONE; Lactated Ringers 1000 ml BAG 1,000 ML IV SCH; ceFAZolin 2 GM in NS PREMIX 2 GM/100 ML BAG IVPB ONE
[2021-06-08] MEDS ORDERED: fentaNYL 100 mcg/2 ml 50 MCG/ML VIAL ONE ×2 (09:18→10:27)
[2021-06-08] MEDS ORDERED: Midazolam 2 mg/2 ml VIAL 1 mg/ml 2 ml VIAL (2 mg) ONE ×2 (09:18→10:27)
[2021-06-08] MEDS ORDERED: Phenylephrine IV 10 MG/ML 1 ml VIAL ONE (09:20)
[2021-06-08] MEDS ORDERED: Lidocaine 2% PF 5 ML VIAL ONE (09:20)
[2021-06-08] MEDS ORDERED: Ondansetron 4 mg VIAL 2 MG/ML 2 ml VIAL ONE (09:23)
[2021-06-08] MEDS ORDERED: Dexamethasone IV 4 MG/ML VIAL 1 ml VIAL ONE (09:23)
[2021-06-08] MEDS ORDERED: ROPIVACAINE 5 MG/ML 30 ML BTL (0.5%) ONE (10:27)
[2021-06-08] MEDS ORDERED: Ropivacaine 5 MG/ML 20 ML VIAL 0.5% (100 MG) ONE (10:43)
[2021-06-08] MEDS ORDERED: fentaNYL 100 mcg/2 ml 50 MCG/ML VIAL IV PRN (11:02)
[2021-06-08] MEDS ORDERED: Naloxone 0.4 mg VIAL 0.4 mg/ml 1 ml VIAL IV PRN (11:02)
[2021-06-08] MEDS ORDERED: DiMENhydriNATE IV 50 mg/ml 1 ml VIAL IV PUSH PRN (11:02)
[2021-06-08] MEDS ORDERED: Ondansetron 4 mg VIAL 2 MG/ML 2 ml VIAL IV PRN ×2 (11:02→11:39)
[2021-06-08] MEDS ORDERED: diPHENhydraMINE 25 mg TAB PO PRN (11:39)
[2021-06-08] MEDS ORDERED: Morphine 2 MG/ML SYRINGE IV PRN (11:39)
[2021-06-08] MEDS ORDERED: diPHENhydraMINE IV 50 MG/ML 1 ml VIAL (BENADRYL) IV PRN (11:39)
[2021-06-08] MEDS ORDERED: Ondansetron ODT 4 mg TAB 4 MG TAB PO PRN (11:39)
[2021-06-08] MEDS ORDERED: Lactulose 30 ml UDC PO PRN (11:39)
[2021-06-08] MEDS ORDERED: Magnesium Hydroxide LIQ 30 ML UDC PO PRN (11:39)
[2021-06-08] MEDS ORDERED: Propofol 10 MG/ML 20 ML BTL ONE (12:14)
[2021-06-08] MEDS ORDERED: Dextrose 50% Syringe 50 ml 25 GM/50 ML SYRINGE IV PUSH PRN (16:12)
[2021-06-08] MEDS: Lactated Ringers 1000 ml BAG 1,000 ML IV SCH (17:20)
[2021-06-08] MEDS ORDERED: Latanoprost 0.005% 2.5 ml BTL BOTH EYES SCH (21:00)
[2021-06-08] MEDS ORDERED: Mometasone 220 MCG MDI INH SCH (21:00)
[2021-06-08] MEDS: Magnesium Hydroxide LIQ 30 ML UDC PO SCH (21:55)
[2021-06-08] MEDS: ceFAZolin 1 GM ADVAN 1 GM in NS 0.9% 50 ML 50 ML IVPB SCH (22:20)
[2021-06-08] MEDS: BRINZOLAMIDE 1% BOTH EYES SCH (22:22)
[2021-06-09] MEDS: Lactated Ringers 1000 ml BAG 1,000 ML IV SCH (02:33)
[2021-06-09] MEDS: ceFAZolin 1 GM ADVAN 1 GM in NS 0.9% 50 ML 50 ML IVPB SCH ×2 (05:38→14:17)
[2021-06-09 06:31] LABS: Hematocrit 37 % (42-52); Hemoglobin 12.6 g/dL (14.0-18.0); Mean Platelet Volume 7.3 fL (7.4-10.4); Platelet Count 186 10^3/uL (150-450)
[2021-06-09 07:05] LABS: Potassium 4.6 mmol/L (3.5-5.0)
[2021-06-09 07:06] LABS: Calcium 9.2 mg/dL (8.6-10.3); EGFR African American 89.1 (>60); EGFR Non-African American 73.7 (>60)
[2021-06-09] MEDS: BRINZOLAMIDE 1% BOTH EYES SCH (08:02)
[2021-06-09] MEDS: Magnesium Hydroxide LIQ 30 ML UDC PO SCH (08:11)
[2021-06-09] MEDS ORDERED: Vitamin THERAPEUTIC TAB PO SCH (09:00)
[2021-06-09] MEDS ORDERED: CMCS: Epleronone 25 mg TAB (NF) PO SCH (09:00)
[2021-06-09] MEDS ORDERED: POTASSIUM 99 MG PO SCH (09:00)
[2021-06-09] MEDS ORDERED: NF: Dulaglutide (NF) 0.75 MG/0.5 ML SYRINGE SUBCUT SCH (09:00)
[2021-06-09 11:31] VITALS: BP 136/80
== END 2021-06-09 15:15 | disposition home or self-care (01) ==
LOC: AA 08:46 → INTOOBSV 08:46 → SSU 11:39
PROVIDERS: ADMIT Orthopaedic Surgery Adult Reconstructive Orthopaedic Surgery; ATTEND Orthopaedic Surgery Adult Reconstructive Orthopaedic Surgery